=== PATIENT | female | born 1955 ===

== ENCOUNTER 2024-07-02 13:07 | Emergency (ER) | payer MEDICARE, OTHER ==
[2024-07-02] MEDS ORDERED: Sodium Chloride 0.9% 20 ML SDV IV PRN (13:10)
[2024-07-02] MEDS ORDERED: Sodium Chloride 0.9% 10 ML Syringe FLUSH PRN (13:10)
[2024-07-02] MEDS ORDERED: Sodium Chloride 0.9% 2.5 ML Syringe FLUSH PRN (13:10)
[2024-07-02] MEDS: Potassium Chloride 20 MEQ Tab.ER PO ONE (13:40)
[2024-07-02] MEDS: Ondansetron 4 MG/2 ML SDV IVPUSH ONE (13:41)
[2024-07-02] MEDS: Lactated Ringers 1,000 ML IV STA (13:41)
[2024-07-02 14:05] LABS: A/G RATIO 0.7 (0.9-1.6); ALBUMIN 2.7 g/dL (3.4-5.0); BILIRUBIN TOTAL 0.4 mg/dL (0.2-1.0); CALCIUM 8.6 mg/dL (8.5-10.1); CARBON DIOXIDE,CO2 29.1 mmol/L (21.0-32.0); CREATININE 0.8 mg/dL (0.6-1.0); EST CRCL DRUG DOSING (CG) 51.28 mL/min; MAGNESIUM 1.5 mg/dL (1.8-2.4); POTASSIUM,K 2.7 mmol/L (3.5-5.1); PROTEIN TOTAL,TP 6.4 g/dL (6.4-8.2)
[2024-07-02] MEDS ORDERED: Magnesium Sulfate (4.06 MEQ/ML) 5 GM/10 ML SDV IV ONE (14:41)
[2024-07-02] MEDS: Magnesium Sulfate/Water 2 GM in Premix Bag 1 BAG IV ONE (14:56)
[2024-07-02 15:32] LABS: CALCIUM 8.3 mg/dL (8.5-10.1); CARBON DIOXIDE,CO2 29.4 mmol/L (21.0-32.0); CREATININE 0.7 mg/dL (0.6-1.0); EST CRCL DRUG DOSING (CG) 58.6 mL/min; POTASSIUM,K 4.1 mmol/L (3.5-5.1)
== END 2024-07-02 16:04 | disposition home or self-care (01) ==
LOC: MW.ED 13:07
DX: A09 Infectious gastroenteritis and colitis, unspecified (principal); E87.6 Hypokalemia; E83.42 Hypomagnesemia; Z79.899 Other long term (current) drug therapy; Z88.0 Allergy status to penicillin; Z88.2 Allergy status to sulfonamides
CPT/HCPCS: 36415; 80048; 80053; 83735; 83880; 85025; 93005; 96361; 96365; 96375; 99203; 99284; A9270; J2405; J3475; J7120